=== PATIENT | female | born 1965 | race Caucasian/White ===

== ENCOUNTER → 2017-07-01 13:55 | Outpatient (CLI) | payer OTHER, SELFPAY ==
[2017-07-01 16:00] LABS: Alanine Aminotransfer ALT/SGPT 60 U/L (13-56)
[2017-07-02 11:24] LABS: HIV - WCH Non-Reactive (Nonreactive)
[2017-07-04 11:21] LABS: Hep B Surface Antibodies Non Reactive (.); Hep C Antibodies <0.1 s/co ratio (0.0-0.9)
== END ==
PROVIDERS: Family Provider Internal Medicine; PCP Internal Medicine; Visit Provider Physician Assistant Medical
DX: S61.259A Open bite of unspecified finger without damage to nail, initial encounter (principal)
CPT/HCPCS: 36415; 84460; 86703; 86706; 86803

== ENCOUNTER → 2017-08-11 16:12 | Outpatient (CLI) | payer OTHER, SELFPAY ==
[2017-08-11 18:59] LABS: HIV - WCH Non-Reactive (Nonreactive)
[2017-08-14 03:07] LABS: HCV Quant. RNA PCR HCV Not Detected IU/mL (.)
== END ==
PROVIDERS: Family Provider Internal Medicine; PCP Internal Medicine; Visit Provider Physician Assistant
DX: S61.259A Open bite of unspecified finger without damage to nail, initial encounter (principal); W50.3XXA Accidental bite by another person, initial encounter
CPT/HCPCS: 36415; 86703; 87522

== ENCOUNTER → 2019-05-30 11:33 | Outpatient (CLI) | payer OTHER, SELFPAY ==
[2019-05-30 11:27] VITALS: BMI 47.2
--- NOTE | 2019-05-30 11:34 | RAD_ITS ---
STUDY: X-RAY - RIGHT KNEE REASON FOR EXAM: Female, 53 years old. FELL IN POT HOLE EXAM DESCRIPTION: Right knee CLINICAL HISTORY: 53 years Female, FELL IN POT HOLE COMPARISON: None FINDINGS: [Studies of the right knee in 4 projections shows no evidence of fracture, dislocation, or bony destruction.] RAD/Knee 4 or More Views IMPRESSION: [Normal right knee.] Electronically Signed: Jonathan Gisela, at 12:30 EST Tel , Service support ,
--- NOTE | 2019-05-30 11:34 | RAD_ITS ---
STUDY: X-RAY - RIGHT ANKLE REASON FOR EXAM: Female, 53 years old. FELL IN POT HOLE TECHNIQUE: 3 view(s) of the ankle. COMPARISON: None. FINDINGS: The right ankle appears normal with no evidence of fracture, dislocation, or bony destruction. RAD/Ankle min 3 Views IMPRESSION: Normal x-ray examination of the right ankle. Electronically Signed: Jonathan Higgins, at 12:29 EST Tel , Service support ,
== END ==
PROVIDERS: PCP Internal Medicine; Referring Provider Physician Assistant Surgical; Visit Provider Physician Assistant Surgical
DX: S80.01XA Contusion of right knee, initial encounter (principal); S96.911A Strain of unspecified muscle and tendon at ankle and foot level, right foot, initial encounter
CPT/HCPCS: 73564; 73610